=== PATIENT | female | born 1980 | race Caucasian/White ===

== ENCOUNTER 2016-07-13 00:48 | Observation (INO) | payer BC ==
[2016-07-13] MEDS ORDERED: VITAMIN E1000 UNI1 PO (03:25)
[2016-07-13] MEDS ORDERED: PRIMROSE OIL PO (03:26)
[2016-07-13] MEDS ORDERED: IRON325 M1 PO (03:27)
[2016-07-13] MEDS ORDERED: PRILOSEC OTC20 MG PO (03:28)
== END 2016-07-13 18:00 | disposition home or self-care (01) ==
LOC: PROG CARE 00:48 → M/S 02:30
PROVIDERS: ADMIT Internal Medicine
DX: R20.0 Anesthesia of skin (principal); K21.9 Gastro-esophageal reflux disease without esophagitis; Z79.899 Other long term (current) drug therapy; Z98.51 Tubal ligation status; Z88.0 Allergy status to penicillin; Z88.2 Allergy status to sulfonamides; Z86.2 Personal history of diseases of the blood and blood-forming organs and certain disorders involving the immune mechanism
CPT/HCPCS: 36415; 70553; 80061; 84443; 86140; A9577; G0378; G0379